=== PATIENT | male | born 1935 | race Caucasian/White ===

== ENCOUNTER 2020-10-08 09:38 | Outpatient (REF) | payer MEDICARE, SELFPAY ==
--- NOTE | ~2020-10-08 | US_ITS ---
EXAMINATION: US ABDOMEN COMPLETE CLINICAL INFORMATION: Abdominal pain. COMPARISON: CT abdomen and pelvis 05/22/2019. TECHNIQUE: Real-time imaging of the abdominal viscera. FINDINGS: PANCREAS: Normal. ABDOMINAL AORTA: The proximal, mid, and distal segments are normal in caliber. INFERIOR VENA CAVA: Visualized portions are normal. LIVER: Normal. The liver is normal in size. The liver contour is normal. Parenchymal echogenicity is normal. No focal hepatic lesion. There is no intrahepatic biliary duct dilatation seen. GALLBLADDER: Normal. The gallbladder is physiologically distended without evidence of stones, sludge, polyps, wall thickening or pericholecystic fluid. COMMON BILE DUCT: Normal in caliber measuring 0.2 cm in diameter. RIGHT KIDNEY: Normal. No hydronephrosis. No renal calculi or focal parenchymal lesions. The kidney measures 11.1 cm in maximum dimension. LEFT KIDNEY: There is anechoic cyst midpole measuring 1.5 cm. No hydronephrosis or renal calculi. The kidney measures 11.5 cm in maximum dimension. SPLEEN: Normal. The spleen measures 9.0 cm in maximum dimension. FREE FLUID: None. US/US abdomen complete IMPRESSION: Anechoic cyst midpole left kidney. Unremarkable complete abdomen ultrasound.
== END 2020-10-08 09:39 | disposition home or self-care (01) ==
LOC: HO.HMGCX 09:38
PROVIDERS: PCP Internal Medicine; Visit Provider Internal Medicine
DX: K81.0 Acute cholecystitis (principal)
CPT/HCPCS: 76700

== ENCOUNTER 2020-10-15 08:17 | Outpatient (REF) | payer MEDICARE, SELFPAY ==
[2020-10-15 09:38] LABS: Alanine Aminotransferase 21 U/L (0-40); Albumin Level 4.4 g/dL (3.5-5.0); Alkaline Phosphatase 71 U/L (39-117); Anion Gap 10 (12-20); Aspartate Amino Transferase 26 U/L (5-37); Bilirubin Total 1.2 mg/dL (0.0-1.0); Blood Urea Nitrogen 15 mg/dL (9-16); Calcium 10.4 mg/dL (8.4-10.2); Carbon Dioxide 31 mmol/L (22-29); Chloride 103 mmol/L (96-108); Estimated Glomerular Filt Rate > 60; Glucose Random 94 mg/dL (60-115); Potassium 4.7 mmol/L (3.3-5.1); Sodium 139 mmol/L (135-145); Total Protein 6.7 g/dL (6.5-8.0)
== END 2020-10-15 08:18 | disposition home or self-care (01) ==
LOC: HO.LAB 08:17
PROVIDERS: PCP Internal Medicine; Visit Provider Internal Medicine
DX: R10.11 Right upper quadrant pain (principal); R60.0 Localized edema; Z68.25 Body mass index [BMI] 25.0-25.9, adult
CPT/HCPCS: 36415; 80053

== ENCOUNTER 2021-02-25 08:55 | Emergency (ER) | payer MEDICARE, SELFPAY ==
--- NOTE | ~2021-02-25 | CT_ITS ---
EXAMINATION: CT HEAD WITHOUT CONTRAST CLINICAL INFORMATION: Fall, trauma, pain COMPARISON: None TECHNIQUE: Contiguous axial imaging was performed from the skull base to vertex without intravenous administration of contrast. Additional 2-D coronal and sagittal reformatted images are generated on the CT workstation and uploaded to PACS. This CT examination was performed using dose optimization techniques as appropriate, variously including the following: *Automated exposure control *Adjustment of mA and/or kV according to patient size (this includes techniques or standardized protocols for targeted exams where dose is matched to indication/reason for exam; i.e. extremities or head) *Use of iterative reconstruction technique DLP: 750 mGy-cm FINDINGS: There is no intracranial hemorrhage, hematoma, or extra-axial fluid collection. The ventricles are normal in size. There is no hydrocephalus, edema, or mass effect. There is mild accentuation of the cortical sulci and fissures and cisterns representing mild generalized atrophy. The lazaro-white matter differentiation appears symmetric. There is no visible acute territorial infarct or mass lesion. There is mild soft tissue swelling overlying the lower left forehead and orbit. The globes and retrobulbar soft tissues are unremarkable. The calvarium appears intact. There is no pneumocephalus or orbital emphysema. There are no air-fluid levels in the sinuses and middle ears or mastoids. There is scattered mild mucosal thickening left frontal and bilateral ethmoid air cells. CT/CT head/brain wo con IMPRESSION: 1. Mild soft tissue swelling overlying left forehead and superior orbit. 2. Globes and retrobulbar soft tissues are unremarkable. No fracture. 3. No acute intracranial abnormality.
--- NOTE | ~2021-02-25 | CT_ITS ---
EXAMINATION: CT CERVICAL SPINE WITHOUT CONTRAST CLINICAL INFORMATION: Fall, trauma, pain COMPARISON: CT had noncontrast 02/25/2021 TECHNIQUE: Multidetector volumetric CT imaging of the cervical spine is performed without contrast in the axial plane. Additional 2D reformatted coronal and sagittal images are generated on the CT workstation and uploaded to PACS. This CT examination was performed using dose optimization techniques as appropriate, variously including the following: *Automated exposure control *Adjustment of mA and/or kV according to patient size (this includes techniques or standardized protocols for targeted exams where dose is matched to indication/reason for exam; i.e. extremities or head) *Use of iterative reconstruction technique DLP: 490 mGy-cm FINDINGS: There is no vertebral compression fracture or fracture line, destructive process, or prevertebral soft tissue swelling. The craniocervical junction appears normal. The odontoid appears intact. There is straightening of the cervical lordosis mid cervical spine. Degenerative disc changes are present at C5-C6 and C6-C7 and C7-T1 with disc narrowing at vertebral spurring. There is facet degeneration at multiple levels, greatest left side C4-C5. There is associated 2-3 mm spondylolisthesis at C4-C5 with faint posterior annulus calcification. There is no perched facet. There is no apical pneumothorax. CT/CT cervical spine wo con IMPRESSION: 1. No acute bony abnormality or prevertebral soft tissue swelling. 2. Scattered degenerative disc and degenerative facet changes with mild spondylolisthesis C4-C5.
[2021-02-25 09:04] VITALS: BP 130/61; PULSE 71; RESP 16; TEMP 36.6; O2SAT 100; BMI 23.7
[2021-02-25] MEDS: Diphth,Pertus(ACell),Tet Adult 0.5 ML SYRINGE IM (09:18)
--- NOTE | 2021-02-25 09:27 | ED_ITS ---
HPI - Fall General Chief Complaint: Fall Stated Complaint: fall Time Seen by Provider: 02/25/21 09:14 Source: patient and family Mode of arrival: ambulatory Limitations: no limitations History of Present Illness HPI Narrative: 85-year-old male previously healthy here with complaints of fall which occurred last night. Patient tells me he had a tripped falling forward hitting the left side of his face on the concrete. There was no loss of consciousness. He has a mild headache but denies any other complaints. Family is here with him as they were unable to stop the bleeding from the laceration. He is not on any blood thinners or aspirin products. Unknown last tetanus shot. Related Data Allergies Allergy/AdvReac Type Severity Reaction Status Date / Time No Known Allergies Allergy Unverified 04/24/20 16:50 [No Known Allergies*] Review of Systems Review of Systems: Yes all other systems are reviewed and are negative Constitutional: Constitutional: Reports no additional constitutional complaints, Denies body ache(s), Denies chills, Denies fever(s), Reports h eadache(s) and Denies weakness Eyes: Eyes: Reports no additional eye complaints and Denies change in vision ENT: Reports system reviewed and no additional complaints, except as documented, Denies dizziness, Reports headache(s), Denies nasal congestion, Denies nasal discharge and Denies neck pain Cardiovascular: Cardiovascular: Reports no additional cardiovascular complaints, Denies chest pain, Denies leg edema and Denies dyspnea Respiratory: Respiratory: Reports no additional respiratory complaints, Denies cough and Denies dyspnea Gastrointestinal: Gastrointestinal: Reports no additional gastrointestinal complaints, Denies abdominal pain, Denies diarrhea, Denies nausea and Denies vomiting Genitourinary: Genitourinary: Denies urinary incontinence Musculoskeletal: Musculoskeletal: Reports no additional musculoskeletal complaints, Denies back pain, Denies arthralgias, Denies joint swelling, Denies neck pain, Denies numbness and Denies tingling Integumentary/Breasts: Skin/Breast: Reports system reviewed and no additional complaints, except as docu and Denies rash Comments: Laceration Neurologic: Reports system reviewed and no additional complaints, except as documented, Denies Abnormal speech present, Denies dizziness, Reports headache(s), Denies numbness, Denies tingling and Denies weakness [facility] Past Medical History Attestation statement: The following information was validated with the patient. Source: old records reviewed and nursing notes reviewed Social History Social History Advance Directives: No Advance Directives Information Provided: Yes Physical Exam Vital Signs: Vital Signs: Last Vital Signs Temp 97.9 F 02/25/21 09:04 Pulse 63 02/25/21 10:30 Resp 16 02/25/21 09:04 BP 108/49 L 02/25/21 10:30 Pulse Ox 100 02/25/21 10:30 Body Mass Index 23.7 Const: General: cooperative, healthy appearing, comfortable and no acute distress Orientation/consciousness: patient oriented x3 Limitations: no limitations HENMT: Head: Yes normal to inspection Head images: 1. Laceration, 2 centimetres. Edges are approximated. No active bleeding Ears: hearing grossly normal bilaterally General nose exam: Normal external nose present Face and sinus: Yes normal facial exam Mouth: Normal oral and palatal mucosa present Throat: Yes posterior oropharynx normal Eyes: General: appearance normal, both eyes and all related structures Pupils: Equal, round and reactive pupils present Neck: Other: No midline tenderness, step-offs or deformities Neck: Yes normal visual inspection and Yes full ROM Chest: Chest palpation & inspection: normal inspection of the chest Resp: Effort & Inspection: normal respiratory effort Auscultation: clear to auscultation bilaterally Cardio: Rate: regular rate Rhythm: regular rhythm Peripheral pulses: Peripheral pulses 2+ throughout GI: Inspection: Yes normal to inspection Palpation (GI): Soft to palpation and nontender Auscultation: normal bowel sounds Back/Spine/Pelvis: Thoracic/Lumbar Spine: thoracic and lumbar spine normal to inspection Skin: General skin exam: no rashes or lesions noted Neuro: General: patient oriented x3, no focal motor deficits and normal sensation to monofilament Cranial nerves: Yes CN's II-XII intact bilaterally, Yes Equal, round and reactive pupils present, Yes Bilaterally intact EOM present, Yes Nystagmus not present, Yes Normal facial strength present and Yes Midline tongue present Cognition (Neuro): normal cognition Speech: No Abnormal speech present Gait exam (Neuro): Normal gait present Motor exam (neuro): 5/5 motor strength present throughout Sensory Exam: Normal double simultaneous stimulation for sensation Extrem: General: Yes normal to inspection Course Course Course Narrative: 85-year-old male here with complaints of mild headache and laceration to the left side of the face after mechanical fall last evening. Hemodynamically stable. Normal neuro exam. The patient has a small laceration over the left eyebrow with approximated edges. Bleeding is currently controlled. Will check CT head and neck due to age. Provide tetanus and close wound 1040-imaging negative. Wound is closed dermabond. Reviewed findings with the patient. Reviewed worrisome signs symptoms of when to return to the emergency department. Comfortable discharge home. MDM - Fall Medical Records Attestation: I reviewed the patient's medical records. Lab Data Attestation: I reviewed the patient's lab results. Imaging Data CT scan - head: Attestation: I personally reviewed and interpreted this imaging study as follows: Radiologist's impression: FINDINGS: There is no intracranial hemorrhage, hematoma, or extra-axial fluid collection. The ventricles are normal in size. There is no hydrocephalus, edema, or mass effect. There is mild accentuation of the cortical sulci and fissures and cisterns representing mild generalized atrophy. The lazaro-white matter differentiation appears symmetric. There is no visible acute territorial infarct or mass lesion. There is mild soft tissue swelling overlying the lower left forehead and orbit. The globes and retrobulbar soft tissues are unremarkable. The calvarium appears intact. There is no pneumocephalus or orbital emphysema. There are no air-fluid levels in the sinuses and middle ears or mastoids. There is scattered mild mucosal thickening left frontal and bilateral ethmoid air cells. CT/CT head/brain wo con IMPRESSION: 1. Mild soft tissue swelling overlying left forehead and superior orbit. 2. Globes and retrobulbar soft tissues are unremarkable. No fracture. 3. No acute intracranial abnormality. Ct cervical spine: Attestation: I personally reviewed and interpreted this imaging study as follows: Radiologist's impression: FINDINGS: There is no vertebral compression fracture or fracture line, destructive process, or prevertebral soft tissue swelling. The craniocervical junction appears normal. The odontoid appears intact. There is straightening of the cervical lordosis mid cervical spine. Degenerative disc changes are present at C5-C6 and C6-C7 and C7-T1 with disc narrowing at vertebral spurring. There is facet degeneration at multiple levels, greatest left side C4-C5. There is associated 2-3 mm spondylolisthesis at C4-C5 with faint posterior annulus calcification. There is no perched facet. There is no apical pneumothorax. CT/CT cervical spine wo con IMPRESSION: 1. No acute bony abnormality or prevertebral soft tissue swelling. 2. Scattered degenerative disc and degenerative facet changes with mild spondylolisthesis C4-C5. Discharge Plan Discharge Clinical Impression: Face lacerations Patient Disposition: Home, Self-Care Instructions: Facial Fracture (ED) Additional Instructions: Your CT scan showed no evidence of bleeding or fracture The glue will fall off on its own. Do not pick addict Referrals: Effie Sheffield MD [Primary Care Provider] - 2 days Interventions: ED Discharge Assessment Last Done: 02/25/21 10:44 Discharge Date/Time: 02/25/21 10:44
[2021-02-25 10:30] VITALS: BP 108/49; PULSE 63; O2SAT 100
== END 2021-02-25 10:44 | disposition home or self-care (01) ==
PROVIDERS: Emergency Provider Emergency Medicine; PCP Internal Medicine
DX: S01.81XA Laceration without foreign body of other part of head, initial encounter (principal); W01.0XXA Fall on same level from slipping, tripping and stumbling without subsequent striking against object, initial encounter; Y93.9 Activity, unspecified; Y92.9 Unspecified place or not applicable; Y99.9 Unspecified external cause status
CPT/HCPCS: 12011; 70450; 72125; 90471; 90715; 99284

== ENCOUNTER 2021-02-27 10:20 | Emergency (ER) | payer MEDICARE, SELFPAY ==
--- NOTE | ~2021-02-27 | CT_ITS ---
EXAMINATION: CT HEAD, NONCONTRAST CT FACIAL BONES CLINICAL INFORMATION: Left orbital redness, bruising. Recent fall/trauma. COMPARISON: CT had an CT cervical spine 02/25/2021 TECHNIQUE: Contiguous axial imaging was performed from the skull base to vertex without intravenous administration of contrast. CT facial bones is also performed in the axial plane without contrast. Additional 2-D coronal and sagittal reformatted images are generated on the CT workstation for both exams and uploaded to PACS. This CT examination was performed using dose optimization techniques as appropriate, variously including the following: *Automated exposure control *Adjustment of mA and/or kV according to patient size (this includes techniques or standardized protocols for targeted exams where dose is matched to indication/reason for exam; i.e. extremities or head) *Use of iterative reconstruction technique DLP: 688 mGy-cm (brain) 350 mGy-cm (facial) FINDINGS: CT brain: There is no acute intracranial abnormality from recent exam. The ventricles are normal in size and contour. There is no interval intracranial hemorrhage or hematoma or extra-axial fluid collection. No subarachnoid hemorrhage. No intraventricular hemorrhage. The lazaro-white matter differentiation is symmetric. There is incidental mildly prominent cisterna magna again noted as incidental finding. There is no visible acute territorial infarct or mass lesion. The calvarium appears intact. No pneumocephalus. The middle ears and mastoids are well-aerated and clear. No fluid levels. CT facial bones: There is mild soft tissue swelling overlying the left orbit. The globes and retrobulbar soft tissues appear normal. No orbital emphysema. There is no fracture. The orbital rims and floors are intact. The nasal bones, pterygoid plates, maxilla, and mandible are intact. There is scattered mucosal thickening ethmoid air cells and maxillary sinuses without air-fluid levels. The middle ears and mastoids are clear. The craniocervical junction is normal. There are degenerative changes in the cervical spine and mild spondylolisthesis C4-C5 similar to recent CT. CT/CT facial bones wo con IMPRESSION: 1. No acute intracranial abnormality. 2. No facial bone fracture. 3. Globes unremarkable. No retrobulbar hematoma or orbital emphysema.
[2021-02-27 10:52] VITALS: BP 129/70; PULSE 69; RESP 16; TEMP 36.4; O2SAT 97; BMI 23.7
--- NOTE | 2021-02-27 11:09 | ED.GENADULT ---
HPI - General Adult General Chief complaint: General Medical Stated complaint: EYE INFECTION Time Seen by Provider: 02/27/21 10:51 Source: patient Mode of arrival: ambulatory Limitations: no limitations History of Present Illness HPI narrative: Patient presents to ED for redness around left eye after falling 2 days ago. Patient denies any eye pain, headache, nausea, change in vision, or inability to move eye muscles. Patient is not on any blood thinners. Patient denies any new trauma since fall. Related Data Previous Rx's Medication Instructions Recorded amoxicillin-pot clavulanate 1 tab PO Q12H 10 Days #20 tab 02/27/21 [Augmentin] clindamycin HCl 300 mg PO Q8H 10 Days #30 cap 02/27/21 Allergies Allergy/AdvReac Type Severity Reaction Status Date / Time No Known Allergies Allergy Unverified 04/24/20 16:50 [No Known Allergies*] Review of Systems Review of Systems: Yes all other systems are reviewed and are negative Constitutional: Constitutional: Reports as per HPI and Reports no additional constitutional complaints Eyes: Eyes: Reports as per HPI and Reports no additional eye complaints Comments: redness around left eye without any pain ENT: Reports system reviewed and no additional complaints, except as documented and Reports as per HPI Cardiovascular: Cardiovascular: Reports as per HPI and Reports no additional cardiovascular complaints Respiratory: Respiratory: Reports as per HPI and Reports no additional respiratory complaints Gastrointestinal: Gastrointestinal: Reports as per HPI and Reports no additional gastrointestinal complaints Genitourinary: Genitourinary: Reports no additional male genitourinary complaints and Reports as per HPI Musculoskeletal: Musculoskeletal: Reports no additional musculoskeletal complaints and Reports as per HPI Neurologic: Reports system reviewed and no additional complaints, except as documented and Reports as per HPI Psychiatric: Psychiatric: Reports no additional psychiatric complaints and Reports as per HPI [facility] Past Medical History Medical History (Updated 02/27/21 @ 12:30 by FREIDA Velasco) No known health problems Social History Social History Advance Directives: Yes Advance Directives Information Provided: Yes Advance Directives on File: No Physical Exam Vital Signs: Vital Signs: Last Vital Signs Temp 97.5 F 02/27/21 10:52 Pulse 69 02/27/21 10:52 Resp 16 02/27/21 10:52 BP 129/70 02/27/21 10:52 Pulse Ox 97 02/27/21 10:52 Body Mass Index 23.7 Const: General: cooperative, healthy appearing, comfortable, no acute distress, well developed, alert, awake and Physically active Orientation/consciousness: patient oriented x3 HENMT: Head: Yes normal to inspection, Yes No palpable skull fracture present and Yes normocephalic Head images: 1. Redness/mild ecchycm. Negative for erythema conjunctiva swelling of eyelids. Negative for eye pain. Negative for signs of eye entrapment. Patient has complete range of motion of the eye muscles. Negative for photophobia. Negative for globe tenderness. Eyes: Other: Visual Calabrese: normal visual calabrese by confrontation Alignment and Position: alignment normal and position normal Eyelids: Yes eyelids normal Conjunctivae: conjunctivae normal Sclerae: sclerae normal Corneas: corneas normal Pupils: Equal, round and reactive pupils present EOM: EOMs intact bilaterally Neck: Neck: Yes normal visual inspection, Yes full ROM, Yes no lymphadenopathy, Yes no meningeal signs, Yes trachea midline, Yes supple and No tender Chest: Chest palpation & inspection: normal inspection of the chest and normal palpation of entire chest wall Resp: Effort & Inspection: normal respiratory effort and able to speak in complete sentences Auscultation: clear to auscultation bilaterally Cardio: Jugular venous distension: no JVD Heart sounds: S1 normal heart sound present and S2 normal heart sound present GI: Inspection: Yes normal to inspection and No abdominal wall ecchymosis Palpation (GI): Soft to palpation, not firm, nontender, no guarding and not rigid : General: No CVA tenderness and Yes no CVA tenderness Back/Spine/Pelvis: Back: no CVA tenderness, No CVA tenderness and No back tenderness Skin: General skin exam: no rashes or lesions noted and elasticity normal Neuro: General: patient oriented x3, gait normal and no meningeal signs Cranial nerves: Yes Equal, round and reactive pupils present Extrem: General: Yes normal to inspection and Yes full ROM Psych: Appearance: grossly normal, well kempt and not disheveled Course Course Course Narrative: History physical exam indicate more preseptal cellulitis. Not suspecting orbital cellulitis. Will repeat imaging of head and face make sure this is not early raccoon sign Reevaluation(s) Reevaluation #1: Images came back negative for any fracture. Not suspecting orbital cellulitis. Patient will be discharged with antibiotics for preseptal cellulitis. Patient did not have his reading glasses during visual acuity test. Both eyes together visual acuity is 20/50. Left eye acuity is 20/60 and right eye is 20/50 Time: 12:28 Medical Decision Making MDM Narrative Medical decision making narrative: Preseptal cellulitis Discharge Plan Discharge Clinical Impression: Preseptal cellulitis of left eye Patient Disposition: Home, Self-Care Instructions: Periorbital Cellulitis in Adults (ED) Additional Instructions: Repeat CT scan came back negative for any skull fracture, bleeding in the brain, facial fracture, globe rupture, or any potential infectious etiology in the eye. Diagnosis is preseptal cellulitis. Will be discharged with antibiotics. Return to the ED for any loss of vision, change in vision, headache, dizziness, eye pain, worsening redness, fluid from the ears/nares, or any other concerning symptoms. Prescriptions: New amoxicillin-pot clavulanate [Augmentin] 875-125 mg tablet 1 tab PO Q12H 10 Days Qty: 20 RF: 0 clindamycin HCl 300 mg capsule 300 mg PO Q8H 10 Days Qty: 30 RF: 0 Referrals: Effie Sheffield MD [Primary Care Provider] - 2 days (Preseptal cellulitis) Interventions: ED Discharge Assessment Last Done: 02/27/21 12:37 Discharge Date/Time: 02/27/21 12:45 Print Language: Greenlandic
== END 2021-02-27 12:45 | disposition home or self-care (01) ==
PROVIDERS: Emergency Provider Emergency Medicine Emergency Medical Services; PCP Internal Medicine
DX: L03.213 Periorbital cellulitis (principal)
CPT/HCPCS: 70450; 70486; 99283; 99284

== ENCOUNTER 2021-04-23 07:13 | Outpatient (REF) | payer MEDICARE, SELFPAY ==
[2021-04-23 08:37] LABS: MANUAL DIFF FLAG NO
[2021-04-23 08:43] LABS: Basophils Absolute Auto 0.1 X10*3/uL (0.0-0.2); Eosinophils Absolute Auto 0.5 X10*3/uL (0.0-0.4); Eosinophils Percent Auto 6.8 % (0-4); Hematocrit 42.9 % (42-52); Hemoglobin 14.4 g/dl (14.0-18.0); Imm Gran Abs Auto 0.02 X10*3/uL (0.00-0.03); Imm Gran Pct Auto 0.3 % (0.0-0.4); Lymphocytes Absolute Auto 1.1 X10*3/uL (1.2-4.9); Lymphocytes Percent Auto 16.2 % (20-40); Mean Corpuscular HGB Conc 33.6 g/dl (31.0-36.0); Mean Corpuscular Hemoglobin 29.9 pg (27.0-33.0); Mean Corpuscular Volume 89.2 fL (80-98); Mean Platelet Volume 11.2 fL (9.4-12.4); Monocytes Absolute Auto 0.7 X10*3/uL (0.1-1.2); Monocytes Percent Auto 10.8 % (2-11); Neutrophils Absolute Auto 4.4 X10*3/uL (2.0-8.3); Neutrophils Percent Auto 64.9 % (45-73); Platelet Count 208 X10*3/uL (160-400); Red Blood Count 4.81 X10*6/uL (4.60-5.80); Red Cell Distribution Width 13.2 % (11.0-16.0); White Blood Count 6.7 X10*3/uL (4.8-10.8)
[2021-04-23 09:19] LABS: Alanine Aminotransferase 14 U/L (0-40); Albumin Level 4.3 g/dL (3.5-5.0); Alkaline Phosphatase 76 U/L (39-117); Anion Gap 10 (12-20); Aspartate Amino Transferase 21 U/L (5-37); Bilirubin Total 1.5 mg/dL (0.0-1.0); Blood Urea Nitrogen 12 mg/dL (9-16); Calcium 9.8 mg/dL (8.4-10.2); Carbon Dioxide 28 mmol/L (22-29); Chloride 105 mmol/L (96-108); Estimated Glomerular Filt Rate > 60; Glucose Fasting 97 mg/dL (60-99); Potassium 4.4 mmol/L (3.3-5.1); Sodium 139 mmol/L (135-145); Total Protein 6.9 g/dL (6.5-8.0)
[2021-04-23 09:41] LABS: Thyroid Stimulating Hormone 1.31 uIU/mL (0.32-4.0)
== END 2021-04-23 07:14 | disposition home or self-care (01) ==
LOC: HO.LAB 07:13
PROVIDERS: PCP Internal Medicine; Visit Provider Internal Medicine
DX: Z00.00 Encounter for general adult medical examination without abnormal findings (principal); Z13.31 Encounter for screening for depression; M48.062 Spinal stenosis, lumbar region with neurogenic claudication
CPT/HCPCS: 36415; 80053; 84443; 85025

== ENCOUNTER 2023-02-04 07:00 | Outpatient (REF) | payer MEDICARE, SELFPAY ==
[2023-02-04 07:14] LABS: MANUAL DIFF FLAG NO
[2023-02-04 07:34] LABS: Basophils Absolute Auto 0.1 X10*3/uL (0.0-0.2); Basophils Percent Auto 1.3 % (0-2); Eosinophils Absolute Auto 0.5 X10*3/uL (0.0-0.4); Eosinophils Percent Auto 6.3 % (0-4); Hematocrit 43.9 % (42.0-52.0); Hemoglobin 14.9 g/dl (14.0-18.0); Imm Gran Abs Auto 0.03 X10*3/uL (0.00-0.03); Imm Gran Pct Auto 0.4 % (0.0-0.4); Lymphocytes Percent Auto 13.2 % (20-40); Mean Corpuscular HGB Conc 33.9 g/dl (31.0-36.0); Mean Corpuscular Hemoglobin 30.2 pg (27.0-33.0); Mean Platelet Volume 10.6 fL (9.4-12.4); Monocytes Absolute Auto 0.7 X10*3/uL (0.1-1.2); Monocytes Percent Auto 9.6 % (2-11); Neutrophils Percent Auto 69.2 % (45-73); Platelet Count 221 X10*3/uL (160-400); Red Blood Count 4.93 X10*6/uL (4.60-5.80); Red Cell Distribution Width 13.4 % (11.0-16.0); White Blood Count 7.2 X10*3/uL (4.8-10.8)
[2023-02-04 07:56] LABS: Alanine Aminotransferase 13 U/L (0-40); Alkaline Phosphatase 75 U/L (39-117); Anion Gap 11 (12-20); Aspartate Amino Transferase 20 U/L (5-37); Bilirubin Total 1.2 mg/dL (0.0-1.0); Blood Urea Nitrogen 12 mg/dL (9-16); Calcium 10.9 mg/dL (8.4-10.2); Carbon Dioxide 29 mmol/L (22-29); Chloride 105 mmol/L (96-108); Cholesterol 196 mg/dL; Estimated Glomerular Filt Rate > 60; Glucose Random 98 mg/dL (60-115); HDL Cholesterol 63 mg/dL; LDL Cholesterol Calculated 115 mg/dl; Potassium 4.6 mmol/L (3.3-5.1); Sodium 140 mmol/L (135-145); Total Protein 7.7 g/dL (6.5-8.0); Triglycerides 90 mg/dL
== END 2023-02-04 07:01 | disposition home or self-care (01) ==
LOC: HO.LAB 07:00
PROVIDERS: PCP Internal Medicine; Visit Provider Internal Medicine
DX: B36.0 Pityriasis versicolor (principal); L81.6 Other disorders of diminished melanin formation; E78.00 Pure hypercholesterolemia, unspecified
CPT/HCPCS: 36415; 80053; 80061; 85025

== ENCOUNTER 2023-09-01 14:38 | Outpatient (REF) | payer MEDICARE, SELFPAY ==
[2023-09-01 16:14] LABS: Parathyroid Hormone Intact 55.5 pg/mL (8.7-77.1)
[2023-09-01 16:17] LABS: Alanine Aminotransferase 17 U/L (0-40); Albumin Level 3.9 g/dL (3.5-5.0); Alkaline Phosphatase 74 U/L (39-117); Anion Gap 10 (12-20); Aspartate Amino Transferase 22 U/L (5-37); Bilirubin Total 0.4 mg/dL (0.0-1.0); Blood Urea Nitrogen 14 mg/dL (9-16); Calcium 10.4 mg/dL (8.4-10.2); Carbon Dioxide 29 mmol/L (22-29); Chloride 104 mmol/L (96-108); Estimated Glomerular Filt Rate > 60; Glucose Random 100 mg/dL (60-115); Phosphorus 2.9 mg/dL (2.7-4.5); Potassium 4.4 mmol/L (3.3-5.1); Sodium 139 mmol/L (135-145); Total Protein 7.4 g/dL (6.5-8.0)
[2023-09-01 16:24] LABS: Vitamin D 25-OH Total 52.7 ng/mL (>30)
== END 2023-09-01 14:39 | disposition home or self-care (01) ==
LOC: HO.LAB 14:38
PROVIDERS: PCP Internal Medicine; Visit Provider Internal Medicine
DX: E83.52 Hypercalcemia (principal); I10 Essential (primary) hypertension; R07.81 Pleurodynia; Z91.81 History of falling
CPT/HCPCS: 36415; 80053; 82306; 83970; 84100

== ENCOUNTER 2024-07-01 07:34 | Emergency (ER) | payer MEDICARE, SELFPAY ==
--- NOTE | ~2024-07-01 | CT_ITS ---
EXAM: CT scan of the chest, abdomen, and pelvis. INDICATION: Fall with left-sided chest and abdominal pain. COMPARISON: Abdominal ultrasound October 08, [address] chest, abdomen and pelvis May 22, 2019 TECHNIQUE: Multidetector helical imaging of the chest, abdomen, and pelvis was obtained from the thoracic inlet through the pubic symphysis. Coronal and sagittal reformatted images that were obtained were also reviewed. This CT examination was performed using dose optimization techniques as appropriate, variously including the following: *Automated exposure control *Adjustment of mA and/or kV according to patient size (this includes techniques or standardized protocols for targeted exams where dose is matched to indication/reason for exam; i.e. extremities or head) *Use of iterative reconstruction technique DLP: 998 mGy-cm FINDINGS: CHEST: Central airways are patent. Filling defect within the trachea statistically represents mucus. There is mild bibasilar airspace disease, atelectasis versus infiltrate. Minimal biapical scarring. Mild emphysematous changes. No pleural effusion. No pneumothorax. The heart is normal in size. Coronary artery calcifications are present. There is no pericardial effusion. Ascending aorta is mildly dilated measuring 4.2 cm. No gross mediastinal or hilar lymphadenopathy appreciated on today's noncontrast imaging. No pathologically enlarged axillary lymph nodes. ABDOMEN/PELVIS: The liver is normal in size the gallbladder is normal in appearance. The pancreas, spleen and right adrenal gland are unremarkable. There is mild diffuse hypertrophy of the left adrenal gland. Symmetrically sized kidneys without renal calculi or hydronephrosis. Small left renal cyst. Normal caliber loops of small and large bowel. Mild stool burden throughout the majority of the colon. Normal appendix. Small fat-containing umbilical hernia. Normal caliber abdominal aorta demonstrating mild to moderate atherosclerotic disease. No retroperitoneal lymphadenopathy. The bladder is decompressed. The prostate gland is mildly enlarged. No gross free pelvic fluid. No inguinal lymphadenopathy. OSSEOUS STRUCTURES Diffuse osteopenia. Moderate degenerative changes of the spine. Mild anterolisthesis of L4 on L5 and L5 on S1. Nondisplaced fractures of the left posterior ninth, 10th and 11th ribs. CT/CT chest wo IV con IMPRESSION: 1. Nondisplaced fractures of the left posterior ninth, 10th and 11th ribs. No pneumothorax. 2. Mild bibasilar airspace disease, atelectasis versus infiltrate. 3. Mildly dilated ascending aorta measuring 4.2 cm. 4. Mildly enlarged prostate gland. Electronically signed by: Juan Villanueva MD 07/01/2024 09:04 AM [facility] [place]
--- NOTE | ~2024-07-01 | XR_ITS ---
EXAMINATION: XR HAND, LEFT CLINICAL INFORMATION: fall, injury left thumb COMPARISON: None available. TECHNIQUE: PA, lateral, and oblique views of the left hand. FINDINGS: Visualized portion of the distal radius and colon demonstrate no fracture. Carpal rows are maintained. No carpal bone fracture. Mild to moderate degenerative changes of the first carpal metacarpal joint. No metacarpal or phalangeal fracture. Mild degenerative changes of the first MTP joint and scattered IP joints. No localized soft tissue swelling. No radiopaque foreign body. XR/XR hand LT 2V IMPRESSION: Mild degenerative changes of the left hand without fracture. Electronically signed by: Juan Villanueva MD 07/01/2024 09:07 AM [facility]
--- NOTE | ~2024-07-01 | CT_ITS ---
EXAM: CT scan of the chest, abdomen, and pelvis. INDICATION: Fall with left-sided chest and abdominal pain. COMPARISON: Abdominal ultrasound October 08, [address] chest, abdomen and pelvis May 22, 2019 TECHNIQUE: Multidetector helical imaging of the chest, abdomen, and pelvis was obtained from the thoracic inlet through the pubic symphysis. Coronal and sagittal reformatted images that were obtained were also reviewed. This CT examination was performed using dose optimization techniques as appropriate, variously including the following: *Automated exposure control *Adjustment of mA and/or kV according to patient size (this includes techniques or standardized protocols for targeted exams where dose is matched to indication/reason for exam; i.e. extremities or head) *Use of iterative reconstruction technique DLP: 998 mGy-cm FINDINGS: CHEST: Central airways are patent. Filling defect within the trachea statistically represents mucus. There is mild bibasilar airspace disease, atelectasis versus infiltrate. Minimal biapical scarring. Mild emphysematous changes. No pleural effusion. No pneumothorax. The heart is normal in size. Coronary artery calcifications are present. There is no pericardial effusion. Ascending aorta is mildly dilated measuring 4.2 cm. No gross mediastinal or hilar lymphadenopathy appreciated on today's noncontrast imaging. No pathologically enlarged axillary lymph nodes. ABDOMEN/PELVIS: The liver is normal in size the gallbladder is normal in appearance. The pancreas, spleen and right adrenal gland are unremarkable. There is mild diffuse hypertrophy of the left adrenal gland. Symmetrically sized kidneys without renal calculi or hydronephrosis. Small left renal cyst. Normal caliber loops of small and large bowel. Mild stool burden throughout the majority of the colon. Normal appendix. Small fat-containing umbilical hernia. Normal caliber abdominal aorta demonstrating mild to moderate atherosclerotic disease. No retroperitoneal lymphadenopathy. The bladder is decompressed. The prostate gland is mildly enlarged. No gross free pelvic fluid. No inguinal lymphadenopathy. OSSEOUS STRUCTURES Diffuse osteopenia. Moderate degenerative changes of the spine. Mild anterolisthesis of L4 on L5 and L5 on S1. Nondisplaced fractures of the left posterior ninth, 10th and 11th ribs. CT/CT abdomen pelvis wo IV con IMPRESSION: 1. Nondisplaced fractures of the left posterior ninth, 10th and 11th ribs. No pneumothorax. 2. Mild bibasilar airspace disease, atelectasis versus infiltrate. 3. Mildly dilated ascending aorta measuring 4.2 cm. 4. Mildly enlarged prostate gland. Electronically signed by: Juan Villanueva MD 07/01/2024 09:04 AM [facility] [place]
[2024-07-01 07:36] VITALS: BP 156/82; PULSE 80; O2SAT 96; BMI 26.2
--- NOTE | 2024-07-01 07:40 | PC.NURSE ---
pt biba d/t unwitnessed fall x tuesday onto concrete after tripping on a curb. denies feeling/dizzy/lightheaded prior to fall. no eval after. -headstrike, -loc, -thinners. pt c/o left abdomen/ribcage/hip. denies numbness/tingling. tender w/ palpation. no deformities noted to stated areas. bruising/swelling noted to pt's left thumb. ROM intact. CMS intact. pulses palpable. pt unsure if he used hand to brace fall. upon ED arrival - a&ox4. vss and up to date. pt seen by ED provider/aware of plan of care moving forward. on RA w/o difficulty - no sob/wob noted. respirations even/unlabored. plan of care ongoing. call maciel placed within reach.
[2024-07-01 07:44] VITALS: BP 136/70; PULSE 76; RESP 16; TEMP 36.3; O2SAT 95
--- NOTE | 2024-07-01 07:52 | ECG_ITS ---
Test Reason : FALL Blood Pressure : / mmHG Vent. Rate : 072 BPM Atrial Rate : 072 BPM P-R Int : 192 ms QRS Dur : 096 ms QT Int : 386 ms P-R-T Axes : 013 055 046 degrees QTc Int : 422 ms Normal sinus rhythm Normal ECG When compared with ECG of 22-MAY-2019 18:55, ST no longer depressed in Anterior leads Nonspecific T wave abnormality no longer evident in Inferior leads Referred By: Heather Hernandez Electronically Signed By:SHUBHAM PRADO MD
--- NOTE | 2024-07-01 07:54 | ED_ITS ---
HPI - Fall General Chief Complaint: Fall Stated Complaint: FALL ON TUESDAY L SIDE PAIN Time Seen by Provider: 07/01/24 07:45 Source: patient, family and EMS Mode of arrival: EMS Limitations: no limitations History of Present Illness ED Provider: DR. Hernandez HPI Narrative: 88-year-old male brought in by ambulance for evaluation of left side chest/abdominal pain. Patient stated that he had the curb with his right foot causing him to fall down landing on his left side of the body causing severe left chest wall pain and left upper abdominal pain, patient declined head trauma, no LOC, no headache, not taking any medication in particular anticoagulation, Patient is complaining of left-sided chest and pain left upper abdominal pain, patient also is complaining of left thumb pain. able to ambulate and bear weight on both hips but complaining of left hip pain. Related Data Previous Rx's ?Medication ?Instructions ?Recorded amoxicillin 875 mg-potassium 1 tab PO Q12H 10 days #20 tabs 02/27/21 clavulanate 125 mg tablet (Augmentin) clindamycin HCl 300 mg capsule 300 mg PO Q8H 10 days #30 caps 02/27/21 ibuprofen 800 mg tablet 800 mg PO Q8H PRN pain #20 tabs 07/01/24 oxycodone 5 mg tablet 5 mg PO BID PRN pain #10 tabs 07/01/24 Allergies Allergy/AdvReac Type Severity Reaction Status Date / Time No Known Allergies Allergy Verified 07/01/24 07:38 [No Known Allergies*] Review of Systems 2 Review of Systems: All other systems are reviewed and are negative Constitutional: Reports as per HPI and Reports no additional constitutional complaints Eyes: Reports as per HPI and Reports no additional eye complaints Reports system reviewed and no additional complaints, except as documented Cardiovascular: Reports as per HPI and Reports no additional cardiovascular complaints Respiratory: Reports as per HPI and Reports no additional respiratory complaints Gastrointestinal: Reports as per HPI and Reports no additional gastrointestinal complaints Genitourinary: Reports no additional female genitourinary complaints Musculoskeletal: Reports no additional musculoskeletal complaints Skin/Breast: Reports system reviewed and no additional complaints, except as docu Psychiatric: Reports no additional psychiatric complaints Endocrine: Reports no additional endocrine complaints Hematologic/Lymphatic: Reports no additional hematologic/lymphatic complaints Allergic/Immunologic: Reports no additional allergic/immunologic complaints Reports system reviewed and no additional complaints, except as documented and Reports Abnormal speech present PMFSH Past Medical History Medical History No known health problems Social History Social History Smoked in Last 30 Days: No Use of substances other than those prescribed or required for medical reasons: No Advance Directives: No Advance Directives Information Provided: No Do you have a plan to hurt others: No Plan Physical Exam 2 Vital Signs: Vital Signs: Last Vital Signs Temp 97.4 F 07/01/24 07:44 Pulse 76 07/01/24 07:44 Resp 16 07/01/24 07:44 BP 136/70 07/01/24 07:44 Pulse Ox 95 07/01/24 07:44 O2 Del Method Room Air 07/01/24 07:44 BMI result Body Mass Index 26.2 Vital signs have been reviewed and appear to be correct. Blood pressure elevated. Heart rate normal. Respiratory rate normal. Temperature normal. Oxygen saturation normal. Appearance: Alert. Oriented X3. No acute distress. Head: Normal external exam. Normocephalic. Atraumatic. No [place] signs noted. No raccoon eyes noted Eyes: PERRLA. EOMI. Conjunctiva and sclera normal. Eyelids normal. ENT: TM's Normal. Pharynx normal. Uvula midline. Moist mucous membranes. No trismus noted. No drooling noted. No muffled voice noted. Neck: Normal inspection. Neck supple. FROM. No adenopathy. Thyroid Normal. No meningeal signs. No neck mass noted. CVS: Normal heart rate and rhythm. Heart sound normal. No murmurs noted. Pulses normal throughout. Respiratory: No respiratory distress. Painless inspiration. Breath sounds normal. No wheezes/rales/rhonchi noted. Left lower chest wall tenderness, no ecchymosis, no step-off, no deformity. No accessory muscle usage noted or decreased air movement noted. Abdomen: Soft and nontender. Bowel sounds normal in all 4 quadrants. No distention noted. No organomegaly noted. No visible injury noted. Back: No CVA tenderness. Full range of motion noted. Skin: Skin warm and dry. Normal skin color. Normal skin turgor. No rashes/lesions/lacerations noted. Extremities: left hand: Neurovascular intact, swelling to the left thumb, a small subungual hematoma. Neuro: Oriented X 3. Cranial nerve exam: II-XII are grossly intact No motor deficit. No sensory deficit. Reflexes normal. Course Reevaluation(s) Reevaluation #1: S/p fall 2 days ago landing on his left chest wall, CT confirming nondisplaced fracture of left 9th, 10th, and 11th ribs. Finding were discussed with the patient patient was instructed to do breathing exercising, will prescribe some pain medication patient was educated about how to use pain medication and refrain from driving or doing mental activity while he is on the medicine. Time: 09:57 Medical Decision Making Differential Diagnosis Differential Diagnoses: The differential diagnosis associated with the presentation includes ( Chest wall contusion, rib fracture, pneumothorax pulmonary contusion, intra-abdominal organ contusion, ACS, left hand fracture.) Admission/Observation Consideration of admission/observation: Escalation of care including admission/observation considered Lab Data MDM Lab Attestation statement: I reviewed the patient's lab results. 07/01/24 08:32 07/01/24 08:32 Labs: Lab Results 07/01/24 Range/Units 08:32 WBC 7.9 (4.8-10.8) X10*3/uL RBC 5.03 (4.60-5.80) X10*6/uL Hgb 14.9 (14.0-18.0) g/dl Hct 43.4 (42.0-52.0) % MCV 86.3 (80.0-98.0) fL MCH 29.6 (27.0-33.0) pg MCHC 34.3 (31.0-36.0) g/dl RDW 13.8 (11.0-16.0) % Plt Count 223 (160-400) X10*3/uL MPV 10.2 (9.4-12.4) fL Immature Gran % (Auto) 0.4 (0.0-0.4) % Neut % (Auto) 78.8 H (45-73) % Lymph % (Auto) 8.5 L (20-40) % [place] % (Auto) 8.8 (2-11) % Eos % (Auto) 2.7 (0-4) % Baso % (Auto) 0.8 (0-2) % Lymph # (Auto) 0.7 L (1.2-4.9) X10*3/uL [place] # (Auto) 0.7 (0.1-1.2) X10*3/uL Eos # (Auto) 0.2 (0.0-0.4) X10*3/uL Baso # (Auto) 0.1 (0.0-0.2) X10*3/uL Abs Immat Gran (auto) 0.03 (0.00-0.03) X10*3/uL Absolute Neuts (auto) 6.2 (2.0-8.3) x10*3/uL Absolute Nucleated RBC 0.000 (0.0-0.012) X10*3/uL Nucleated RBC % (auto) 0.0 (0.0-0.2) /100WBC Sodium 136 (135-145) mmol/L Potassium 4.1 (3.3-5.1) mmol/L Chloride 101 (96-108) mmol/L Carbon Dioxide 24 (22-29) mmol/L Anion Gap 15 (12-20) BUN 13 (9-16) mg/dL Creatinine 0.89 (0.5-1.4) mg/dL Estim Creat Clear Calc 67.3 Estimated GFR > 60 Random Glucose 118 H (60-115) mg/dL Calcium 10.2 (8.4-10.2) mg/dL Total Bilirubin 0.8 (0.0-1.0) mg/dL Direct Bilirubin 0.2 (0.0-0.5) mg/dL AST 25 (5-37) U/L ALT 14 (0-40) U/L Alkaline Phosphatase 72 (39-117) U/L Troponin I High Sens 27.7 (<3.5-35.0) ng/L Total Protein 7.5 (6.5-8.0) g/dL Albumin 4.0 (3.5-5.0) g/dL Lipase 15 (8-78) U/L Urine Color Yellow Urine Appearance Clear Urine pH 7.0 (5.0-9.0) Ur Specific [place] 1.015 (1.005-1.025) Urine Protein Negative (Neg-Trace) mg/dL Urine Glucose (UA) Negative (Negative) mg/dL Urine Ketones Negative (Negative) mg/dL Urine Blood Large (3+) H (Negative) Urine Nitrite Negative (Negative) Ur Leukocyte Esterase Negative (Negative) Urine RBC >20 H (0-2) /HPF Urine WBC 0-5 (0-5) /HPF Ur Squamous Epith Cells 0-2 (0-2) /HPF Urine Bacteria None Seen (None Seen) Hyaline Casts 0-2 (0-2) /LPF Independent Interpretation I performed an independent interpretation of an: Plain X-Ray ( Left hand: Mild degenerative changes of the left hand without fracture.) and CT Scan ( Chest, abdomen, and pelvis:1. Nondisplaced fractures of the left posterior ninth, 10th and 11th ribs. No pneumothorax. 2. Mild bibasilar airspace disease, atelectasis versus infiltrate. 3. Mildly dilated ascending aorta measuring 4.2 cm. 4. Mildly enlarged prostate gland.) Radiology Impression Discussion of test interpretation with radiology: I have reviewed the radiologist's reading. Discharge Plan Discharge Clinical Impression: Multiple rib fractures, Contusion of hand, left Patient Disposition: Home, Self-Care Instructions: Rib Fracture (ED) Additional Instructions: do 10 of the breathing exercises every 2 hours to keep the lung expanded. Follow-up with PCP. do not take oxycodone and Dr. Or doing a mental work. Prescriptions: New oxycodone 5 mg tablet 5 mg PO BID PRN (Reason: pain) Qty: 10 0RF Rx Instructions: Partial Fill upon patient request. ibuprofen 800 mg tablet 800 mg PO Q8H PRN (Reason: pain) Qty: 20 0RF No Action amoxicillin-pot clavulanate [Augmentin] 875-125 mg tablet 1 tab PO Q12H 10 Days Qty: 20 0RF clindamycin HCl 300 mg capsule 300 mg PO Q8H 10 Days Qty: 30 0RF Print Language: Macedonian
--- NOTE | 2024-07-01 08:25 | PC.NURSE ---
pt returned from CT/xray at this time. tech bedside obtaining ekg/lab work. pt used urinal independently w/o any issues. respirations remain even/unlabored.
[2024-07-01 08:37] LABS: MANUAL DIFF FLAG NO
[2024-07-01 08:38] LABS: Basophils Absolute Auto 0.1 X10*3/uL (0.0-0.2); Basophils Percent Auto 0.8 % (0-2); Eosinophils Absolute Auto 0.2 X10*3/uL (0.0-0.4); Eosinophils Percent Auto 2.7 % (0-4); Hematocrit 43.4 % (42.0-52.0); Hemoglobin 14.9 g/dl (14.0-18.0); Imm Gran Abs Auto 0.03 X10*3/uL (0.00-0.03); Imm Gran Pct Auto 0.4 % (0.0-0.4); Lymphocytes Absolute Auto 0.7 X10*3/uL (1.2-4.9); Lymphocytes Percent Auto 8.5 % (20-40); Mean Corpuscular HGB Conc 34.3 g/dl (31.0-36.0); Mean Corpuscular Hemoglobin 29.6 pg (27.0-33.0); Mean Corpuscular Volume 86.3 fL (80.0-98.0); Mean Platelet Volume 10.2 fL (9.4-12.4); Monocytes Absolute Auto 0.7 X10*3/uL (0.1-1.2); Monocytes Percent Auto 8.8 % (2-11); Neutrophils Absolute Auto 6.2 x10*3/uL (2.0-8.3); Neutrophils Percent Auto 78.8 % (45-73); Platelet Count 223 X10*3/uL (160-400); Red Blood Count 5.03 X10*6/uL (4.60-5.80); Red Cell Distribution Width 13.8 % (11.0-16.0); White Blood Count 7.9 X10*3/uL (4.8-10.8)
[2024-07-01 08:39] LABS: Appearance Urine Clear; Color Urine Yellow; Glucose Urine UA Negative (Negative); Leukocyte Esterase Urine Negative (Negative); Nitrite Urine Negative (Negative); Specific Gravity - Urine 1.015 (1.005-1.025); UMIC TRIGGER UACC YES; Urine Blood Large (3+) (Negative); Urine Ketones Negative (Negative); Urine Protein Negative (Neg-Trace)
[2024-07-01 08:44] LABS: Bacteria Urine None Seen (None Seen); Hyaline Casts Urine 0-2 /LPF (0-2); RBC Urine >20 /HPF (0-2); Squamous Epithelial Cell Urine 0-2 /HPF (0-2); WBC Urine 0-5 /HPF (0-5)
[2024-07-01 09:04] LABS: Alanine Aminotransferase 14 U/L (0-40); Alkaline Phosphatase 72 U/L (39-117); Anion Gap 15 (12-20); Aspartate Amino Transferase 25 U/L (5-37); Bilirubin Direct 0.2 mg/dL (0.0-0.5); Bilirubin Total 0.8 mg/dL (0.0-1.0); Blood Urea Nitrogen 13 mg/dL (9-16); Calcium 10.2 mg/dL (8.4-10.2); Carbon Dioxide 24 mmol/L (22-29); Chloride 101 mmol/L (96-108); Creatinine Clr Calc Pharmacy 67.3; Estimated Glomerular Filt Rate > 60; Glucose Random 118 mg/dL (60-115); Lipase 15 U/L (8-78); Potassium 4.1 mmol/L (3.3-5.1); Sodium 136 mmol/L (135-145); Total Protein 7.5 g/dL (6.5-8.0)
[2024-07-01 09:06] LABS: Troponin-I High Sensitivity 27.7 ng/L (<3.5-35.0)
[2024-07-01 10:23] VITALS: BP 127/62; PULSE 73; RESP 16; TEMP 36.4; O2SAT 96
[2024-07-01 10:32] VITALS: BP 127/62; PULSE 73; RESP 16; TEMP 36.4; O2SAT 96
[2024-07-01] MEDS: oxyCODONE HCl Immed Release 5 MG TABLET PO (10:39)
--- NOTE | 2024-07-01 10:51 | PC.NURSE ---
pt medicated w/ oxycodone d/t increased pain prior to discharge. incentive spirometry teaching provided to pt. teachback by pt applied.
== END 2024-07-01 10:51 | disposition home or self-care (01) ==
PROVIDERS: Emergency Provider Emergency Medicine
DX: S22.42XA Multiple fractures of ribs, left side, initial encounter for closed fracture (principal); S60.222A Contusion of left hand, initial encounter; R07.89 Other chest pain; R10.2 Pelvic and perineal pain; R94.31 Abnormal electrocardiogram [ECG] [EKG]; M79.642 Pain in left hand; W01.0XXA Fall on same level from slipping, tripping and stumbling without subsequent striking against object, initial encounter; Y93.89 Activity, other specified; Y92.89 Other specified places as the place of occurrence of the external cause; Y99.8 Other external cause status; Z79.899 Other long term (current) drug therapy
CPT/HCPCS: 36415; 71250; 73120; 74176; 80048; 80076; 81001; 83690; 84484; 85025; 93005; 99285

== ENCOUNTER → 2024-07-01 07:52 | Outpatient (BNV) | payer MEDICARE, SELFPAY | PROVIDERS: Emergency Provider Emergency Medicine; Visit Provider Internal Medicine Cardiovascular Disease | DX: R07.9 Chest pain, unspecified (principal) | CPT/HCPCS: 93010 ==

== ENCOUNTER 2024-07-12 11:19 | Outpatient (REF) | payer MEDICARE, SELFPAY ==
[2024-07-12 12:58] LABS: MANUAL DIFF FLAG NO
[2024-07-12 13:09] LABS: Basophils Absolute Auto 0.1 X10*3/uL (0.0-0.2); Basophils Percent Auto 1.3 % (0-2); Eosinophils Absolute Auto 0.7 X10*3/uL (0.0-0.4); Hemoglobin 13.4 g/dl (14.0-18.0); Imm Gran Abs Auto 0.02 X10*3/uL (0.00-0.03); Imm Gran Pct Auto 0.3 % (0.0-0.4); Lymphocytes Absolute Auto 1.1 X10*3/uL (1.2-4.9); Lymphocytes Percent Auto 13.4 % (20-40); Mean Corpuscular HGB Conc 32.7 g/dl (31.0-36.0); Mean Corpuscular Hemoglobin 29.1 pg (27.0-33.0); Mean Corpuscular Volume 88.9 fL (80.0-98.0); Mean Platelet Volume 10.4 fL (9.4-12.4); Monocytes Absolute Auto 0.9 X10*3/uL (0.1-1.2); Monocytes Percent Auto 11.6 % (2-11); Neutrophils Absolute Auto 5.1 x10*3/uL (2.0-8.3); Neutrophils Percent Auto 64.4 % (45-73); Platelet Count 275 X10*3/uL (160-400); Red Blood Count 4.61 X10*6/uL (4.60-5.80); Red Cell Distribution Width 13.6 % (11.0-16.0); White Blood Count 7.9 X10*3/uL (4.8-10.8)
[2024-07-12 13:23] LABS: Alanine Aminotransferase 25 U/L (0-40); Albumin Level 3.8 g/dL (3.5-5.0); Alkaline Phosphatase 100 U/L (39-117); Anion Gap 8 (12-20); Aspartate Amino Transferase 31 U/L (5-37); Bilirubin Total 0.5 mg/dL (0.0-1.0); Blood Urea Nitrogen 14 mg/dL (9-16); Calcium 9.5 mg/dL (8.4-10.2); Carbon Dioxide 29 mmol/L (22-29); Chloride 104 mmol/L (96-108); Cholesterol 175 mg/dL (<200); Estimated Glomerular Filt Rate > 60; Glucose Random 91 mg/dL (60-115); HDL Cholesterol 57 mg/dL (>40); LDL Cholesterol Calculated 95 mg/dL (<100); Potassium 4.2 mmol/L (3.3-5.1); Sodium 137 mmol/L (135-145); Total Protein 7.2 g/dL (6.5-8.0); Triglycerides 116 mg/dL (<150)
[2024-07-12 13:40] LABS: Vitamin D 25-OH Total 46.7 ng/mL (>30)
[2024-07-12 13:44] LABS: D Dimer High Sensitivity 628 NG/ML
[2024-07-12 13:50] LABS: Folate 14.1 ng/mL (> or = 4.0); Vitamin B12 663 pg/mL (200-900)
== END 2024-07-12 11:20 | disposition home or self-care (01) ==
LOC: HO.10HDL 11:19
PROVIDERS: Visit Provider Internal Medicine
DX: H91.90 Unspecified hearing loss, unspecified ear (principal); I10 Essential (primary) hypertension; R60.0 Localized edema; S22.43XD Multiple fractures of ribs, bilateral, subsequent encounter for fracture with routine healing
CPT/HCPCS: 36415; 80053; 80061; 82306; 82607; 82746; 85025; 85379

== ENCOUNTER → 2024-09-18 09:25 | Outpatient (BNVA) | payer MEDICARE, SELFPAY | PROVIDERS: Visit Provider Physician Assistant Surgical | DX: I83.11 Varicose veins of right lower extremity with inflammation (principal); I83.12 Varicose veins of left lower extremity with inflammation | CPT/HCPCS: 99202 ==

== ENCOUNTER 2024-10-03 07:58 | Outpatient (REF) | payer MEDICARE, SELFPAY ==
--- NOTE | ~2024-10-03 | US_ITS ---
EXAMINATION: US LOWER EXTREMITY VENOUS (REFLUX EXAM), BILATERAL CLINICAL INFORMATION: Varices. COMPARISON: None. TECHNIQUE: Color flow triplex imaging and compression Doppler was performed to evaluate both the deep and the superficial systems bilaterally. To evaluate the superficial system, the examination was performed in the upright position. Color-flow Doppler ultrasound and compression ultrasound were utilized. In addition, maneuvers were utilized to demonstrate reflux. FINDINGS: 1. DEEP VENOUS ULTRASOUND OF THE RIGHT LOWER EXTREMITY: Common Femoral Vein: Compressible, normal respiratory variation and augmented flow. Femoral Vein: Compressible, normal color flow and augmentation. Popliteal Vein: Compressible, normal augmentation. Deep Reflux: There is no evidence of reflux in the deep system in either the common femoral vein, superficial femoral or the popliteal vein. There is no evidence of a William's cyst. 2. SUPERFICIAL ULTRASOUND WITH DOPPLER OF RIGHT LOWER EXTREMITY: GREAT SAPHENOUS VEIN: Saphenofemoral Junction: 0.5 cm; Reflux: 0 ms Proximal Thigh: 0.4 cm; Reflux: 0 ms Mid Thigh: 0.4 cm; Reflux: 0 ms Distal Thigh: 0.3 cm; Reflux: 0 ms At Knee: 0.4 cm; Reflux: 0 ms Proximal Calf: 0.4 cm; Reflux: 440 ms Mid Calf: 0.3 cm; Reflux: 0 ms Distal Calf: 0.4 cm; Reflux: 0 ms DUPLICATED MEDIAL GREAT SAPHENOUS VEIN: Diameter: None imaged Reflux: NA DUPLICATED LATERAL GREAT SAPHENOUS VEIN: Diameter: 0.2 cm. Reflux: NA SMALL SAPHENOUS VEIN: Saphenopopliteal Junction: 0.3 cm; Reflux: 0 ms Proximal: 0.3 cm; Reflux: 0 ms Distal: 0.3 cm; Reflux: 0 ms VEIN OF GIACOMINI: Size: NA Reflux: NA PERFORATORS: Location: Proximal to mid calf. Size: 0 point- Reflux: NA VARICOSITIES: Location: None imaged. Size: NA Reflux: NA 3. DEEP VENOUS ULTRASOUND OF THE LEFT LOWER EXTREMITY: Common Femoral Vein: Compressible, normal respiratory variation and augmented flow. Femoral Vein: Compressible, normal color flow and augmentation. Popliteal Vein: Compressible, normal augmentation. Deep Reflux: There is no evidence of reflux in the deep system in either the common femoral vein, superficial femoral or the popliteal vein. There is no evidence of a William's cyst. 4. SUPERFICIAL ULTRASOUND WITH DOPPLER OF LEFT LOWER EXTREMITY: GREAT SAPHENOUS VEIN: Saphenofemoral Junction: 0.6 cm; Reflux: 0 ms Proximal Thigh: 0.4 cm; Reflux: 0 ms Mid Thigh: 0.3 cm; Reflux: 0 ms Distal Thigh: 0.2 cm; Reflux: 0 ms At Knee: 0.3 cm; Reflux: 0 ms Proximal Calf: 0.4 cm; Reflux: 0 ms Mid Calf: 0.4 cm; Reflux: 0 ms Distal Calf: 0.3 cm; Reflux: 0 ms DUPLICATED MEDIAL GREAT SAPHENOUS VEIN: Diameter: None imaged Reflux: NA DUPLICATED LATERAL GREAT SAPHENOUS VEIN: Diameter: 0.3-0.5 cm. Reflux: NA SMALL SAPHENOUS VEIN: Saphenopopliteal Junction: 0.1 cm; Reflux: 0 ms Proximal: 0.3 cm; Reflux: 0 ms Distal: 0.3 cm; Reflux: 0 ms VEIN OF GIACOMINI: Size: 0.2 cm. Reflux: NA PERFORATORS: Location: Calf region. Size: 0.1-0.2 cm. Reflux: NA VARICOSITIES: Location: None Imaged Size: NA Reflux: NA US/US venous duplex LE BI IMPRESSION: Right: Venous insufficiency, great saphenous vein below the knee. Perforators in the calf without reflux. Left: No venous insufficiency. Perforators in the calf without reflux. Electronically signed by: Bartolo Zamorano MD 10/03/2024 01:48 PM [facility]
== END 2024-10-03 07:59 | disposition home or self-care (01) ==
LOC: HO.US 07:58
PROVIDERS: PCP Internal Medicine; Visit Provider Physician Assistant Surgical
DX: I83.11 Varicose veins of right lower extremity with inflammation (principal); I83.12 Varicose veins of left lower extremity with inflammation
CPT/HCPCS: 93970

== ENCOUNTER → 2024-10-03 08:03 | Outpatient (BNV) | payer MEDICARE, SELFPAY | PROVIDERS: PCP Internal Medicine; Visit Provider Radiology Diagnostic Radiology | DX: I83.11 Varicose veins of right lower extremity with inflammation (principal); I83.12 Varicose veins of left lower extremity with inflammation | CPT/HCPCS: 93970 ==

== ENCOUNTER 2024-10-11 08:50 | Outpatient (AMB) | payer MEDICARE, SELFPAY ==
[2024-10-11 08:56] VITALS: BMI 26.1
--- NOTE | 2024-10-11 08:56 | MHC.OFFVIS ---
Vital Signs 10/11/24 08:56 Height 6 ft 1 in Weight 198 lb BMI 26.1 Intake Visit Reasons: follow up s/p US 10/03/24 Intake Note: follow up US 10/03/24 for LE swelling and Hx of DVT. Left LE worse than the Right LE. Worse throughout the day. 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 He continues to be frustrated with the increased swelling in his bilateral lower extremities, worse in the evenings and nighttime. He continues to elevate his legs and wear compression stockings daily. He was diagnosed with a DVT and placed on Eliquis on 07/11/2024. 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 [facility] Medical History No known health problems Review of Systems Const Reports as per HPI and Denies weakness ENT Reports Normal hearing present and Denies dizziness Card Reports as per HPI, Denies chest pain, Denies chest pain at rest, Denies chest pain with activity, Denies dyspnea and Denies dyspnea on exertion Resp Reports as per HPI, Denies cough, Denies dyspnea and Denies dyspnea on exertion GI Reports as per HPI, Denies abdominal pain, Denies nausea and Denies vomiting Musc Denies numbness Skin/Breast Reports as per HPI, Denies erythema and Denies wounds Neuro Reports Normal hearing present, Denies dizziness, Denies numbness, Denies Sensory deficit (Neuro) and Denies weakness Psych Reports no additional complaints Endo Reports no additional complaints Physical Exam Vital Signs: BMI result Body Mass Index 26.1 Const General: healthy appearing and no acute distress Orientation/consciousness: patient oriented x3 HEENT Head: Yes normal to inspection Ears: hearing grossly normal bilaterally Mouth: Normal oral and palatal mucosa present Resp Effort & Inspection: normal respiratory effort and able to speak in complete sentences Auscultation: clear to auscultation bilaterally Cardio Jugular venous distension: no JVD Rate: regular rate Rhythm: regular rhythm Heart sounds: S1 normal heart sound present and S2 normal heart sound present Bruits: no abdominal aortic bruits, no carotid bruits, no femoral bruits and no renal bruits Peripheral pulses: Peripheral pulses 2+ throughout GI Inspection: Yes normal to inspection Palpation (GI): No Abdominal aortic bruit present Skin General skin exam: no rashes or lesions noted Wounds: no wounds Hair: normal Neuro General: patient oriented x3 Cranial nerves: Yes Normal hearing present Cognition (Neuro): normal cognition Gait exam (Neuro): Normal gait present Motor exam (neuro): 5/5 motor strength present throughout Sensory Exam: No Sensory deficit (Neuro) Extrem Other: Bilateral lower extremities:+ 1 peripheral edema noted in the right lower extremity, +1/2 noted in left lower extremity. No varicosities or tortuosities noted. No wounds or erythema noted. General: Yes normal to inspection, Yes full ROM, Yes capillary refill normal and Yes normal gait Results Reviewed Results Reviewed: Brief summary of venous insufficiency testing is as follows: right great saphenous vein: negative right small saphenous vein: negative right accessory vein: none present left great saphenous vein: negative left small saphenous vein: negative left accessory vein: none present Please note there is no evidence of any venous aneurysms or significant tortuosity No DVT noted on imaging. Assessment & Plan Assessment & Plan (1) Lymphedema: Code(s): I89.0 - Lymphedema, not elsewhere classified Category: Medical Plan: Luis E is presenting today for a follow up to venous insufficiency ultrasound, performed on 10/03/2024. There was no insufficiency found on ultrasound. There was also no DVT found on ultrasound. We discussed that he will need to reach out to his PCP on whether or not he can continue his Eliquis or discontinue it. We also discussed that he will need to discuss with his PCP about whether to continue with the Lasix for bilateral lower extremity swelling. He continues wearing his compression wraps daily as well as elevating his legs whenever he is sitting. 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 The patient has been on conservative treatment for at least 3 months with minimal relief. Patient has tried 30 mm of mercury compression garments, elevation, exercise, healthy diet, and doing manual self MLD to the best of their ability for over 4 weeks but with no significant relief. He has been compliant with the program, but has provided minimal relief. In addition, on physical exam, we are noticing hyperpigmentation, lymphorrhea, and hyperplasia. It appears that he has stage 2 lymphedema. He has completed multiple forms of conservative therapy; yet, significant symptoms remain. He requires the use of a pneumatic compression device, which we will assist in trying to have the patient obtain them. A pneumatic compression device will help reduce swelling and other lymphedema comorbidities. We will have him come back for a lymphedema clinic on November 21. We discussed the importance of continuing with compression sleeves (patient is unable to get compression socks over his feet) as well as elevation and physical activity. Thank you for allowing us to assist in this patient's care. Coding Level of Care Code Est Pt Level 4 (31973) Diagnoses Lymphedema I89.0 Comment Review of venous insufficiency ultrasound
== END 2024-10-11 09:39 | disposition home or self-care (01) ==
PROVIDERS: PCP Internal Medicine; Visit Provider Physician Assistant Surgical
DX: I89.0 Lymphedema, not elsewhere classified (principal)
CPT/HCPCS: 99214

== ENCOUNTER → 2024-10-11 08:50 | Outpatient (BNVA) | payer MEDICARE, SELFPAY | PROVIDERS: PCP Internal Medicine; Visit Provider Physician Assistant Surgical | DX: I89.0 Lymphedema, not elsewhere classified (principal); Z86.718 Personal history of other venous thrombosis and embolism; Z79.01 Long term (current) use of anticoagulants | CPT/HCPCS: 99212 ==

== ENCOUNTER 2024-11-07 10:51 | Outpatient (REF) | payer MEDICARE, SELFPAY ==
[2024-11-07 13:14] LABS: MANUAL DIFF FLAG NO
[2024-11-07 13:27] LABS: Basophils Absolute Auto 0.1 X10*3/uL (0.0-0.2); Basophils Percent Auto 0.8 % (0-2); Eosinophils Absolute Auto 0.6 X10*3/uL (0.0-0.4); Eosinophils Percent Auto 6.7 % (0-4); Hematocrit 43.5 % (42.0-52.0); Hemoglobin 14.3 g/dl (14.0-18.0); Imm Gran Abs Auto 0.03 X10*3/uL (0.00-0.03); Imm Gran Pct Auto 0.4 % (0.0-0.4); Lymphocytes Absolute Auto 0.9 X10*3/uL (1.2-4.9); Lymphocytes Percent Auto 10.1 % (20-40); Mean Corpuscular HGB Conc 32.9 g/dl (31.0-36.0); Mean Corpuscular Hemoglobin 29.4 pg (27.0-33.0); Mean Corpuscular Volume 89.5 fL (80.0-98.0); Mean Platelet Volume 10.5 fL (9.4-12.4); Monocytes Absolute Auto 0.8 X10*3/uL (0.1-1.2); Neutrophils Absolute Auto 6.2 x10*3/uL (2.0-8.3); Platelet Count 238 X10*3/uL (160-400); Red Blood Count 4.86 X10*6/uL (4.60-5.80); Red Cell Distribution Width 13.8 % (11.0-16.0); White Blood Count 8.5 X10*3/uL (4.8-10.8)
[2024-11-07 13:35] LABS: Alanine Aminotransferase 16 U/L (0-40); Alkaline Phosphatase 82 U/L (39-117); Anion Gap 8 (12-20); Aspartate Amino Transferase 23 U/L (5-37); Bilirubin Total 0.8 mg/dL (0.0-1.0); Blood Urea Nitrogen 13 mg/dL (9-16); Calcium 10.1 mg/dL (8.4-10.2); Carbon Dioxide 28 mmol/L (22-29); Chloride 105 mmol/L (96-108); Estimated Glomerular Filt Rate > 60; Glucose Random 94 mg/dL (60-115); Potassium 4.7 mmol/L (3.3-5.1); Sodium 136 mmol/L (135-145); Total Protein 7.5 g/dL (6.5-8.0)
[2024-11-07 13:47] LABS: D Dimer High Sensitivity 442 NG/ML
== END 2024-11-07 10:52 | disposition home or self-care (01) ==
LOC: HO.10HDL 10:51
PROVIDERS: Visit Provider Internal Medicine
DX: E78.00 Pure hypercholesterolemia, unspecified (principal); I10 Essential (primary) hypertension; I82.409 Acute embolism and thrombosis of unspecified deep veins of unspecified lower extremity; Z68.27 Body mass index [BMI] 27.0-27.9, adult
CPT/HCPCS: 36415; 80053; 85025; 85379

== ENCOUNTER 2024-11-21 13:41 | Outpatient (AMB) | payer MEDICARE, SELFPAY ==
--- NOTE | 2024-11-21 14:08 | A.OFFVIS_ITS ---
Vital Signs 11/21/24 14:09 Height 6 ft 1 in Weight 198 lb BMI 26.1 Intake Visit Reasons: Lymphedema clinic Intake Note: Lymphedema Clinic for bilateral LE swelling, Left LE worse than the Right LE. Pt states that he has been having pain w/ ambulation and is normally very active. 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 He continues to endorse bilateral lower extremity swelling and pain. He states the pain is worse with walking. He states the swelling gets worse as the day progresses. He does continue on Lasix; his PCP just increased his dose to bid. The pt has not noticed any differences being on it. He has no new concerns today. [facility] Medical History No known health problems Review of Systems Const Reports as per HPI and Denies weakness ENT Reports Normal hearing present and Denies dizziness Card Reports as per HPI, Denies chest pain, Denies chest pain at rest, Denies chest pain with activity, Denies dyspnea and Denies dyspnea on exertion Resp Reports as per HPI, Denies cough, Denies dyspnea and Denies dyspnea on exertion GI Reports as per HPI, Denies abdominal pain, Denies nausea and Denies vomiting Musc Denies numbness Skin/Breast Reports as per HPI, Denies erythema and Denies wounds Neuro Reports Normal hearing present, Denies dizziness, Denies numbness, Denies Sensory deficit (Neuro) and Denies weakness Psych Reports no additional complaints Endo Reports no additional complaints Physical Exam Vital Signs: BMI result Body Mass Index 26.1 Const General: healthy appearing and no acute distress Orientation/consciousness: patient oriented x3 HEENT Head: Yes normal to inspection Ears: hearing grossly normal bilaterally Mouth: Normal oral and palatal mucosa present Resp Effort & Inspection: normal respiratory effort and able to speak in complete sentences Auscultation: clear to auscultation bilaterally Cardio Jugular venous distension: no JVD Rate: regular rate Rhythm: regular rhythm Heart sounds: S1 normal heart sound present and S2 normal heart sound present Bruits: no abdominal aortic bruits, no carotid bruits, no femoral bruits and no renal bruits Peripheral pulses: Peripheral pulses 2+ throughout GI Inspection: Yes normal to inspection Palpation (GI): No Abdominal aortic bruit present Skin General skin exam: no rashes or lesions noted Wounds: no wounds Hair: normal Neuro General: patient oriented x3 Cranial nerves: Yes Normal hearing present Cognition (Neuro): normal cognition Gait exam (Neuro): Normal gait present Motor exam (neuro): 5/5 motor strength present throughout Sensory Exam: No Sensory deficit (Neuro) Extrem Other: Bilateral lower extremities:+ 1 peripheral edema noted in the right lower extremity, +1 or 2 noted in left lower extremity. No varicosities or tortuosities noted. No wounds or erythema noted. General: Yes normal to inspection, Yes full ROM, Yes capillary refill normal and Yes normal gait Assessment & Plan Assessment & Plan (1) Lymphedema: Code(s): I89.0 - Lymphedema, not elsewhere classified Category: Medical Plan: Luis E is presenting with his family today to our lymphedema clinic. He continues with bilateral lower extremity swelling and pain. Luis E is presenting today to be fitted for lymphedema pumps. They have had more than 1 month, starting on 09/18/24, of conservative treatments with elevation, compression stockings daily use with 20-30mmHg, and physical activity/home exercises with minimal relief. They continue to have persistent symptoms despite conservative treatments. They are presenting with hyperpigmentation, lymphorrhea, hyperkeratosis, and 1-2+ pitting edema. It appears that they have stage II lymphedema. Ramírez, from [employer], will be fitting them for a pneumatic compression device, which will get mailed to their house. The patient has lymphedema that extends to their upper thigh and abdominal region. The basic pneumatic compression device is not adequate for the patient; it has been trialed but is not clinically appropriate due to the extensive lymphedema noted. The advanced compression device will be the best in this case. Thank you allowing us to care for the patient. Coding Level of Care Code Est Pt Level 3 (81059) Diagnoses Lymphedema I89.0
[2024-11-21 14:09] VITALS: BMI 26.1
== END 2024-11-21 14:41 | disposition home or self-care (01) ==
LOC: HO.HVS 13:42
PROVIDERS: PCP Internal Medicine; Visit Provider Physician Assistant Surgical
DX: I89.0 Lymphedema, not elsewhere classified (principal)
CPT/HCPCS: 99213

== ENCOUNTER → 2024-11-21 13:41 | Outpatient (BNVA) | payer MEDICARE, SELFPAY | PROVIDERS: PCP Internal Medicine; Visit Provider Physician Assistant Surgical | DX: I89.0 Lymphedema, not elsewhere classified (principal) | CPT/HCPCS: 99212 ==

== ENCOUNTER 2025-07-23 10:41 | Outpatient (AMB) | payer MEDICARE, SELFPAY ==
--- NOTE | 2025-07-23 10:53 | MHC.OFFVIS ---
Vital Signs 07/23/25 10:55 Height 6 ft 1 in Weight 198 lb BMI 26.1 Intake Visit Reasons: PRN Intake Note: PRN follow up for bilateral LE swelling. Pt states his legs lock when he goes into a standing position. States the lymphedema pumps have stopped working. Pt states LE weakness Accompanied by: niece Allergies No Known Allergies (No Known Allergies*) Allergy (Verified 07/23/25 10:58) HPI HPI PRN: Details: The patient is an 89-year-old male presenting for follow-up of lymphedema and a malfunctioning lymphedema pump. He reports intermittent leg swelling. He has been using a lymphedema machine from [facility] every night for one hour, which previously helped manage the swelling. For over a month, the device has been malfunctioning, stopping multiple times per minute during use. Separately, the patient experiences leg weakness and pain upon getting up, which makes walking difficult. These symptoms are attributed to arthritis and are noted to be worse in cold weather. [facility] Medical History No known health problems Review of Systems Const All systems reviewed & are unremarkable except as noted in HPI and below Reports no additional complaints ENT Reports Normal hearing present Card Denies chest pain, Denies chest pain at rest, Denies chest pain with activity and Denies pedal edema Resp Denies cough GI Denies abdominal pain Musc Denies abnormal gait, Denies muscle cramps and Denies radiating pain into limb Skin/Breast Denies skin ulcer and Denies wounds Neuro Reports Normal hearing present and Denies abnormal gait Psych Reports no additional complaints Physical Exam Vital Signs: BMI result Body Mass Index 26.1 Const General: cooperative, healthy appearing and comfortable Orientation/consciousness: oriented to person, oriented to place and oriented to time HEENT Head: Yes normal to inspection Neck Neck: Yes normal visual inspection Carotids: no bruits Chest Chest palpation & inspection: normal inspection of the chest Resp Effort & Inspection: normal respiratory effort and able to speak in complete sentences Auscultation: clear to auscultation bilaterally, no crackles, no rales, no rhonchi and no wheezes Cardio Rate: regular rate Rhythm: regular rhythm Heart sounds: S1 normal heart sound present and S2 normal heart sound present Bruits: no carotid bruits Peripheral pulses: Peripheral pulses 2+ throughout GI Inspection: Yes normal to inspection Skin Wounds: no wounds Hair: normal Neuro General: oriented to person, oriented to place and oriented to time Cranial nerves: Yes CN's II-XII intact bilaterally and Yes Normal hearing present Cognition (Neuro): normal cognition Motor exam (neuro): 5/5 motor strength present throughout Extrem Other: venous exam: No significant superficial varicosities or spider telangiectasias, minimal edema General: No clubbing, No cyanosis and No edema Psych Appearance: grossly normal Mental Status: mental status grossly normal Speech and movement: Normal speech and movement present Assessment & Plan Assessment & Plan (1) Lymphedema: Code(s): I89.0 - Lymphedema, not elsewhere classified Category: Medical Plan: I spoke with the patient regarding his intermittent leg swelling and the malfunctioning lymphedema pump he uses for treatment. I informed him that a sales representative public utilities from [facility] will come to his home to assess the device. We discussed that if the machine cannot be adjusted, it will be replaced. I reinforced the importance of continuing nightly use of the pump to control swelling and aid circulation once it is functional. We also discussed that his leg pain and weakness with walking are likely due to his arthritis rather than a blood flow issue, and that cold weather can exacerbate these symptoms. Thank you for allowing us to assist in his care. He will follow up with us on an as-needed basis. Please do not hesitate to reach out if there any questions or concerns. Coding Level of Care Code Est Pt Level 3 (71024) Diagnoses Lymphedema I89.0
[2025-07-23 10:55] VITALS: BMI 26.1
== END 2025-07-23 11:28 | disposition home or self-care (01) ==
LOC: HO.HVS 10:42
PROVIDERS: PCP Internal Medicine; Visit Provider Surgery Vascular Surgery
DX: I89.0 Lymphedema, not elsewhere classified (principal)
CPT/HCPCS: 99213

== ENCOUNTER → 2025-07-23 10:41 | Outpatient (BNVA) | payer MEDICARE, SELFPAY | PROVIDERS: PCP Internal Medicine; Visit Provider Surgery Vascular Surgery | DX: Z09 Encounter for follow-up examination after completed treatment for conditions other than malignant neoplasm (principal); I89.0 Lymphedema, not elsewhere classified | CPT/HCPCS: 99212 ==